=== PATIENT | male | born 1955 | race Caucasian/White ===

== ENCOUNTER 2020-08-07 13:52 | Emergency (ER) | payer MEDICARE ==
[~2020-08-07] VITALS: Ht 188 cm; Wt 91.0 kg
[2020-08-07] MEDS ORDERED: CLINDAMYCIN 900MG PREMIX 50 ML IV ONE (14:30)
[2020-08-07] MEDS ORDERED: VANCOMYCIN 1.5 GM in IV NORMAL SALINE 500ML BAG 500 ML IV ONE (14:30)
[2020-08-07] MEDS ORDERED: IV NORMAL SALINE 1000ML BAG 1,000 ML IV ONE ×3 (14:30→16:45)
[2020-08-07] MEDS ORDERED: MORPHINE SULFATE 10 MG/ML VIAL. IV ONE (14:30)
[2020-08-07 14:52] LABS: BASO # 0.2 x10^3/uL (0.0-0.2); BASO % 1 % (0-3); EOS % 0 % (0-3); HEMATOCRIT 47.9 % (39.0-53.0); HEMOGLOBIN 16.3 g/dL (13.0-17.5); LYMPH # 0.6 x10^3/uL (1.0-4.8); LYMPH % 3 % (24-48); MEAN CORPUSCULAR HEMOGLOBIN 30 pg (25-35); MEAN CORPUSCULAR HGB CONC 34 g/dL (31-37); MEAN CORPUSCULAR VOLUME 89 fL (79-100); MONO # 1.4 x10^3/uL (0.0-1.1); MONO % 7 % (0-9); NEUT % 89 % (31-73); PLATELET COUNT 219 x10^3/uL (140-400); RED CELL DISTRIBUTION WIDTH 14.5 % (11.5-14.5); WHITE BLOOD COUNT 20.2 x10^3/uL (4.0-11.0)
[2020-08-07 15:00] LABS: CREATININE 1.5 mg/dL (0.7-1.3); POTASSIUM 3.6 mmol/L (3.5-5.1)
[2020-08-07] MEDS ORDERED: PIPERACILLIN/TAZOBACTAM 4.5 GM in IV NORMAL SALINE 100ML 100 ML IV ONE (15:00)
[2020-08-07] MEDS ORDERED: VANCOMYCIN 2 GM in IV NORMAL SALINE 500ML BAG 500 ML IV ONE (15:00)
[2020-08-07 15:03] LABS: PROTHROMBIN TIME PATIENT 20.2 SEC (11.7-14.0)
[2020-08-07] MEDS ORDERED: HYDROmorphone 2 MG/ML VIAL IVP ONE ×2 (15:15→16:30)
--- NOTE | 2020-08-07 15:15 | PHYS DOC ---
General Adult EDM: Chief Complaint: TESTICULAR PAIN OR INJURY HPI: HPI: Patient is 64-year-old male presents to the emergency room complaining of severe pain around his testicles with significant skin changes. He states this started 6 days ago and is progressively gotten much worse. He has been having fevers. He continues to be able to urinate and have bowel movements but states that they do not feel the same. He states that it is very painful to walk or set. He has never had anything like this previously. Review of Systems: Review of Systems: General: Reports fever, chills, sweats, fatigue Eyes: Denies drainage, blurred vision, eye redness HENT: Denies rhinorrhea, sore throat, earache Respiratory: Denies cough, shortness of breath, wheezing Cardiac: Denies edema, palpitations, chest pain GI: Denies abdominal pain. Reports nausea, perineum pain, testicular pain MSK: Denies back pain, neck pain Skin: Denies jaundice Neuro: Denies headache, dizziness Psychiatric: Denies SI/HI Heart Score: Risk Factors: Risk Factors: DM, Current or recent (<one month) smoker, HTN, HLP, family history of CAD, obesity. Risk Scores: Score 0 - 3: 2.5% MACE over next 6 weeks - Discharge Home Score 4 - 6: 20.3% MACE over next 6 weeks - Admit for Clinical Observation Score 7 - 10: 72.7% MACE over next 6 weeks - Early Invasive Strategies Current Medications: Current Medications Medications (Trade) Dose Ordered Sig/Narinder Start Time Stop Time Status Last Admin Dose Admin Clindamycin Phosphate 50 ml @ 100 mls/hr 1X ONCE 08/07/20 14:30 08/07/20 14:59 DC Morphine Sulfate (Morphine Sulfate) 5 mg 1X ONCE 08/07/20 14:30 08/07/20 14:49 DC 08/07/20 14:55 5 MG Piperacillin Sod/ Tazobactam Sod 4.5 gm/Sodium Chloride 100 ml @ 200 mls/hr 1X ONCE 08/07/20 15:00 08/07/20 15:29 Sodium Chloride 1,000 ml @ 1,000 mls/hr 1X ONCE 08/07/20 14:30 08/07/20 15:29 08/07/20 14:55 1,000 MLS/HR Vancomycin HCl 1.5 gm/Sodium Chloride 500 ml @ 250 mls/hr 1X ONCE 08/07/20 14:30 08/07/20 16:29 UNV Vancomycin HCl 2 gm/Sodium Chloride 500 ml @ 250 mls/hr 1X ONCE 08/07/20 15:00 08/07/20 16:59 Allergies: Allergies: Allergies Coded Allergies Type Severity Reaction Last Updated Verified No Known Drug Allergies 08/07/20 No Physical Exam: PE: General: Awake, alert, NAD. Cooperative HEENT: Atraumatic, EOMI, PERRL, airway patent, moist oral mucosa Neck: Supple, trachea midline Respiratory: CTA bilaterally, normal effort, no wheezing/crackles CV: Irregularly irregular tachycardia, no murmur, cap refill <2 GI: Soft, nondistended, nontender, no masses MSK: No obvious deformities Skin: Warm, dry. Perineum: erythema with surround swelling that extends to bilateral buttocks and testicles, hemorrhagic bullae, significant tenderness, drainage Neuro: A&O x3, speech NL, sensory and motor grossly intact, no focal deficits Psych: Normal affect, normal mood, not suicidal or homicidal Current Patient Data: Labs: Laboratory Tests Test 08/07/20 14:30 08/07/20 14:35 White Blood Count 20.2 x10^3/uL (4.0-11.0) H Red Blood Count 5.40 x10^6/uL (4.30-5.70) Hemoglobin 16.3 g/dL (13.0-17.5) Hematocrit 47.9 % (39.0-53.0) Mean Corpuscular Volume 89 fL (79-100) Mean Corpuscular Hemoglobin 30 pg (25-35) Mean Corpuscular Hemoglobin Concent 34 g/dL (31-37) Red Cell Distribution Width 14.5 % (11.5-14.5) Platelet Count 219 x10^3/uL (140-400) Neutrophils (%) (Auto) 89 % (31-73) H Lymphocytes (%) (Auto) 3 % (24-48) L Monocytes (%) (Auto) 7 % (0-9) Eosinophils (%) (Auto) 0 % (0-3) Basophils (%) (Auto) 1 % (0-3) Neutrophils # (Auto) 18.0 x10^3/uL (1.8-7.7) H Lymphocytes # (Auto) 0.6 x10^3/uL (1.0-4.8) L Monocytes # (Auto) 1.4 x10^3/uL (0.0-1.1) H Eosinophils # (Auto) 0.0 x10^3/uL (0.0-0.7) Basophils # (Auto) 0.2 x10^3/uL (0.0-0.2) Platelet Estimate Pending Sodium Level 126 mmol/L (136-145) L Potassium Level 3.6 mmol/L (3.5-5.1) Chloride Level 91 mmol/L (98-107) L Carbon Dioxide Level 24 mmol/L (21-32) Anion Gap 11 (6-14) Blood Urea Nitrogen 31 mg/dL (8-26) H Creatinine 1.5 mg/dL (0.7-1.3) H Estimated GFR (Cockcroft-Gault) 47.0 BUN/Creatinine Ratio 21 (6-20) H Glucose Level 430 mg/dL (70-99) H Calcium Level 8.7 mg/dL (8.5-10.1) Total Bilirubin Pending Aspartate Amino Transferase (AST) Pending Alanine Aminotransferase (ALT) Pending Alkaline Phosphatase Pending C-Reactive Protein, Quantitative Pending Total Protein Pending Albumin Pending Albumin/Globulin Ratio Pending Glucose (Fingerstick) 454 mg/dL (70-99) H Laboratory Tests 08/07/20 14:30 Laboratory Tests 08/07/20 14:30 EKG: EKG: [] Radiology/Procedures: Radiology/Procedures: [] Course & Med Decision Making: Course & Med Decision Making Pertinent Labs and Imaging studies reviewed. (See chart for details) Patient 64-year-old male who presents the emergency room with skin changes arou nd his perineum and testicles. Patient's presentation is concerning for possible necrotizing fasciitis. He does have hemorrhagic bulla. He is in atrial fibrillation with RVR which is likely related to his sepsis. He will be treated as possible necrotizing fasciitis and given vancomycin, Zosyn, C lindamycin. He was given pain medicine and fluids here in the emergency room. He was given diltiazem after getting his fluids. CT was called upon his arrival and patient was taken to CT. Dr. Rangel the on-call surgeon was called and I discussed with him the exam findings. He states that patient would be better served at a facility that has urology and recommends transfer. I reviewed the CT scan right after it was taken. Patient has free air which is concerning for necrotizing fasciitis. Patient will be transferred to [facility] Disclaimer: Heena Disclaimer: This electronic medical record was generated, in whole or in part, using a voice recognition dictation system. Critical Care Time Critical Care: Authorized and Performed by: Valarie Murdock MD Total critical care time: approximately 50 minutes Due to a high probability of clinically significant, life threatening deterioration, the patient required my highest level of preparedness to intervene emergently and I personally spent this critical care time directly and personally managing the patient. This critical care time included obtaining a history; examining the patient; pulse oximetry; ventilator management if necessary; ordering and review of studies; arranging urgent treatment with development of a management plan; arranging transfer, evaluation of patient's response to treatment; frequent reassessment; discussion with patient/family; and, discussions with other providers. This critical care time was performed to assess and manage the high probability of imminent, life-threatening deterioration that could result in multi-organ failure. It was exclusive of separately billable procedures and treating other patients and teaching time. Please see MDM section and the rest of the note for further information on patient assessment and treatment. Departure Departure Impression: Primary Impression: Necrotizing fasciitis Additional Impressions: Atrial fibrillation with RVR Diabetes Disposition: 02 TRANSFER [facility] Condition: IMPROVED Referrals: GEE RANKIN MD (PCP) VALARIE MURDOCK MD Aug 07, 2020 15:15
--- NOTE | 2020-08-07 15:31 | RAD ---
Exam: CT abdomen/pelvis without intravenous contrast Indication: Infection Comparison: None Technique: Helical CT imaging performed of the abdomen and pelvis without the use of intravenous contrast. Sagittal and coronal reformats were obtained. One or more of the following individualized dose reduction techniques were utilized for this examination: 1. Automated exposure control 2. Adjustment of the mA and/or kV according to patient size 3. Use of iterative reconstruction technique. Findings: Inherently limited evaluation without intravenous contrast. Lower chest: Lung bases are clear. Heart is normal in size. Liver: Liver is normal in size. Gallbladder/Biliary Tree: Normal. Pancreas: Normal. Spleen: There are calcified splenic granulomas. No splenomegaly. Adrenal Glands: Normal. Kidneys/Ureters/Bladder: Kidneys are normal in size. No hydronephrosis or nephrolithiasis. Ureters are normal. Bladder is distended without wall thickening. Reproductive Organs: Prostate gland is normal. Stomach, small bowel, and colon: There is mild circumferential wall thickening in the distal esophagus. Stomach is normal. No small bowel obstruction. There are few sigmoid diverticula Normal appendix. Vasculature: Abdominal aorta is normal in caliber. Mild calcified aortoiliac atherosclerosis. Lymph Nodes: No lymphadenopathy. Peritoneum and retroperitoneum: Mild presacral edema. No free air. Bones: There is mild degenerative disc disease with large osteophytes throughout the lower thoracic and lumbar spine. Severe facet arthrosis at L5-S1. Miscellaneous: There is a large amount of soft tissue gas in the right perineum and scrotum concerning for for gangrene. Surgical clips in the right groin. Enlarged bilateral inguinal lymph nodes, likely reactive. 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 Critical results discussed by Dr. Orr with Dr. Murdock at 3:25 PM on 08/07/2020. FOR INTERNAL CODING PURPOSES Critical result: Findings discussed with VALARIE MURDOCK at 08/07/2020 3:27 PM. RESULT CODE: (C) Electronically signed by: Montserrat Orr MD (08/07/2020 3:28 PM) [id number]
[2020-08-07 15:38] LABS: ALBUMIN 2.8 g/dL (3.4-5.0); ALBUMIN/GLOBULIN RATIO 0.6 (1.0-1.7); TOTAL PROTEIN 7.5 g/dL (6.4-8.2)
[2020-08-07 15:39] LABS: C-REACTIVE PROTEIN 331.9 mg/L (0-3.3); TOTAL BILIRUBIN 2.7 mg/dL (0.2-1.0)
[2020-08-07 15:41] LABS: CALCIUM 8.7 mg/dL (8.5-10.1)
[2020-08-07] MEDS ORDERED: dilTIAZem IV PUSH 25 MG/5 ML VIAL IVP ONE (16:30)
[2020-08-07 16:33] VITALS: BP 138/68
[2020-08-07 16:58] LABS: BILIRUBIN,URINE SMALL (NEG); CLARITY,URINE CLEAR; COLOR,URINE AMBER; NITRITE,URINE NEGATIVE (NEG); PH,URINE 5.5 (<5.0-8.0); PROTEIN,URINE 100 mg/dL (NEG-TRACE)
[2020-08-07 17:09] LABS: AMORPHOUS SEDIMENT,UR PRESENT /HPF; BACTERIA,URINE 0 /HPF (0-FEW); HYALINE CASTS, URINE FEW /HPF; RBC,URINE RARE /HPF (0-2)
[2020-08-07 17:20] LABS: % BANDS 13 % (0-9); % LYMPHS 3 % (24-48); % MONOS 8 % (0-10); % SEGS 76 % (35-66); PLT ESTIMATE ADEQUATE (ADEQUATE); TOXIC GRANULATION MOD
--- NOTE | 2020-08-08 12:59 | EKG ---
[facility] [address] [place] [id number] Test Date: 2020-08-07 Test Time: 14:38:38 Pat Name: BRENNA GIANG Department: Room: Gender: M [employer]: KALIN : 1955 Requested By: VALARIE PATTERSON Order Number: [id number] Reading MD: Measurements Intervals [place] Rate: 157 P: WI: QRS: -67 QRSD: 132 T: 62 QT: 282 QTc: 462 Interpretive Statements IRREGULAR RHYTHM, NO P-WAVE FOUND VENTRICULAR PREMATURE COMPLEX(ES) ABNORMAL LEFT AXIS DEVIATION LEFT ANTERIOR FASCICULAR BLOCK RIGHT BUNDLE BRANCH BLOCK BIFASCICULAR BLOCK RVH WITH REPOLARIZATION ABNORMALITY ABNORMAL ECG RI6.02 No previous ECG available for comparison
== END 2020-08-07 16:42 | disposition short-term general hospital (02) ==
LOC: EDBD 13:52 → ER 13:52
DX: I48.20 Chronic atrial fibrillation, unspecified (principal); Z20.828 Contact with and (suspected) exposure to other viral communicable diseases; M72.6 Necrotizing fasciitis; R60.0 Localized edema; R50.9 Fever, unspecified
CPT/HCPCS: 36415; 74176; 80053; 81001; 82962; 83605; 85007; 85025; 85610; 85730; 86140; 87040; 87205; 93005; 96365; 96366; 96368; 96375; 96376; 99291; J1170; J2270; J2543; J3370; J3490; J7030; J7040; U0003